=== PATIENT | female | born 1945 | race Caucasian/White ===

== ENCOUNTER 2021-01-30 18:07 | Emergency (ER) | payer MEDICARE, SELFPAY ==
[2021-01-30 18:15] VITALS: BP 157/71; PULSE 93; RESP 18; TEMP 36.6; O2SAT 97; BMI 36.8
--- NOTE | 2021-01-30 18:38 | HMH.EDUTC ---
[facility] Disposition Clinical Impression: Muscle spasm Disposition: Home, Self-Care Condition on Discharge: Good Instructions: Methocarbamol, DI for Muscle Spasm Additional Instructions: *Ibuprofen celina 6 hours with meal as needed for pain/inflammation if you are able to take it *Not additional anti-inflammatory like motrin, aleve, advil with the above amount of ibuprofen. You can still take Tylenol every 4 hours as needed if you need something else for pain *Ice 20 minutes every 2 hours for the first 48 hours after the initial injury followed by moist heat every 20 minutes 3-4 times a day to affected area *Muscle relaxer as prescribed as needed for muscle spasms but remember, it WILL cause drowsiness You cannot take it and drive, operate machinery or care for small children. *Keep this area active, no movement leads to more stiffness, However take it easy and avoid heavy lifting pushing or pulling *Follow up with you family doctor if no improvement for further treatment Return if needed Straight to ER if any life threatening symptoms Prescriptions: methocarbamoL [Methocarbamol 500mg Tablet] 500 mg PO BID 5 Days #10 tab Transmission Status: Pending to [facility] #[id number] Referrals: Vicky Morgan [Primary Care Provider] - As needed Time of Disposition: 18:45 Medical Decision Making - Rey Inquiry Pt receiving controlled substance: No Rey was queried for this patient: No Vital Signs: 01/30/21 18:15 Temperature 97.9 F Temperature Source Temporal Artery Scan Pulse Rate [Right Brachial] 93 H Respiratory Rate 18 Blood Pressure [Right Arm] 157/71 H Blood Pressure Mean [Right Arm] 99 Blood Pressure Source [Right Arm] Automatic Cuff Blood Pressure Position [Right Arm] Sitting 02 Sat by Pulse Oximetry 97 Oxygen Delivery Method Room Air Medical Decision Narrative: Patient reports pain with palpation in her left shoulder area and side of neck State that she woke up with a crick in her neck Denies chest pain denies shortness of breath and states that pain is worse with movement and did improve somewhat after applying ice to area. [facility] HPI - General Stated complaint: Left shoulder& Neck pain Time Seen by Provider: 01/30/21 18:38 Mode of Arrival: Ambulatory Source of Information: Patient Limitations: No Limitations Description of Symptoms (Recalled from Triage Doc. by RN): PATIENT C/O PAIN IN LEFT NECK AND SHOULDER SINCE YESTERDAY HEENT Symptoms (Recalled from RN notes): No Resp Symptoms (Recalled from RN notes): No Skin Symptoms (Recalled from RN notes): No MS Symptoms (Recalled from RN notes): Yes Functional Status (Recalled from RN notes): WNL - History of Present Illness Provider Complaint: Patient states that she slept wrong night before last and when she woke up yesterday with a crick in her neck States that when she turns her head she feels like she is having muscle spasms in her shoulder area and feels like that muscle is tight like a rubber band States that she used some ice on it and it helped some but still sore and hurts with certain ways she moves and turns her head - Related Data Home Medications Medication Instructions Recorded Confirmed Amlodipine Besylate [Amlodipine 10 mg PO DAILY 01/30/21 01/30/21 10mg Tab] Levothyroxine Sodium 50 mcg PO DAILY 01/30/21 01/30/21 [Levothyroxine 50mcg (0.05mg) Tab] Previous Rx's Medication Instructions Recorded methocarbamoL [Methocarbamol 500mg 500 mg PO BID 5 Days #10 tab 01/30/21 Tablet] Allergies Allergy/AdvReac Type Severity Reaction Status Date / Time No Known Allergies Allergy Verified 01/30/21 18:37 - Worker's Comp Is this a Worker's Comp case?: No [facility] History - Hepatitis A Screen Drug use history?: No High risk sexual behaviors?: No History of sexually transmitted infection?: No Currently employed?: No Childcare worker?: No Do you have indoor plumbing?: Yes Do you have electricity?: Yes
[2021-01-30 18:53] VITALS: BP 157/71; PULSE 93; RESP 18; TEMP 36.6; O2SAT 97
== END 2021-01-30 18:56 | disposition home or self-care (01) ==
PROVIDERS: Emergency Provider Nurse Practitioner; PCP Physician Assistant
DX: M62.838 Other muscle spasm (principal); M54.2 Cervicalgia; M25.512 Pain in left shoulder

== ENCOUNTER 2021-10-13 21:26 | Inpatient (IN) | payer MEDICARE, OTHER, SELFPAY ==
--- NOTE | 2021-10-13 21:44 | ECG_ITS ---
APPROVED REPORT Exam: Resting ECG HR:150 bpm ECG Measurements Heart Rate 150 AXES QRSd 94 QRS 79 QT 280 T 71 QTc 365 Conclusion ATRIAL FIBRILLATION WITH RAPID VENTRICULAR RESPONSE WITH ABERRANT CONDUCTION OR VENTRICULAR PREMATURE COMPLEXES POSSIBLE ANTERIOR MYOCARDIAL INFARCTION , OF INDETERMINATE AGE [30 ms Q WAVE IN V3/V4, OR R < 0.2 mV IN V4] CRITICAL TEST RESULT UNCONFIRMED REPORT Electronically signed by : Orlando Tripathi MD 10/14/2021 18:12:44
[2021-10-13 21:53] VITALS: BP 111/60; PULSE 156; RESP 18; TEMP 37.4; O2SAT 95; BMI 34.9
--- NOTE | 2021-10-13 21:54 | XR_ITS ---
PROCEDURE INFORMATION: Exam: XR Chest Exam date and time: 10/13/2021 10:01 PM Age: 76 years old Clinical indication: Cardiovascular condition or disease; Atrial fibrillation; Additional info: Af rvr, looking for infection TECHNIQUE: Imaging protocol: XR of the chest. Views: 1 view. COMPARISON: No relevant prior studies available. FINDINGS: Lungs: Pulmonary vascular congestion and interstitial prominence. Pleural spaces: Unremarkable. No pleural effusion. No pneumothorax. Heart/Mediastinum: Cardiomegaly. Bones/joints: Unremarkable. IMPRESSION: Cardiomegaly and CHF pattern.
[2021-10-13 21:58] LABS: Coronavirus 19, PCR Not Detected (NotDetected); Influenza A, PCR Not Detected (NotDetected); Influenza B, PCR Not Detected (NotDetected)
--- NOTE | 2021-10-13 22:03 | HMH.EDGENADL ---
ED Disposition Clinical Impression: Atrial fibrillation with rapid ventricular response Disposition: Admitted As Inpatient Condition on Discharge: Serious Referrals: Provider,Referral, [Primary Care Provider] - - Critical Care Critical Care Time: Yes (45) Attestation: On 10/13/21, the high probability of a clinically significant, sudden or life threatening deterioration of the following system(s) required my full and direct attention, intervention and personal management. The time I documented below is in addition to time spent performing reported procedures but includes the following listed in this critical care notation. Vital system(s) involved:: Circulatory Failure My critical care processes included: Assessment & monitoring of V/S, Initial and Re-exams, Data Review/Interpretation, Coordinating Care, Medication Orders and management, Documentation Medical Decision Making - Medical Records Medical records reviewed: Yes: I reviewed the patient's medical records. - Rey Inquiry Pt receiving controlled substance: No Vital Signs: 10/13/21 21:53 10/13/21 23:00 10/13/21 23:31 Temperature 99.3 F Temperature Source Oral Pulse Rate 141 H Pulse Rate [Left Radial] 156 H Respiratory Rate 18 18 18 Blood Pressure 127/67 104/67 L Blood Pressure [Right Arm] 111/60 Blood Pressure Mean 74 75 Blood Pressure Mean [Right Arm] 77 Blood Pressure Source [Right Arm] Automatic Cuff Blood Pressure Position [Right Arm] Sitting 02 Sat by Pulse Oximetry 95 95 Oxygen Delivery Method Room Air 10/13/21 23:45 10/14/21 00:00 10/14/21 00:30 Temperature Temperature Source Pulse Rate 142 H 129 H 122 H Pulse Rate [Left Radial] Respiratory Rate 19 31 H 29 H Blood Pressure 109/62 L 106/57 L 100/56 L Blood Pressure [Right Arm] Blood Pressure Mean Blood Pressure Mean [Right Arm] Blood Pressure Source [Right Arm] Blood Pressure Position [Right Arm] 02 Sat by Pulse Oximetry 88 L 88 L 95 Oxygen Delivery Method 10/14/21 01:00 10/14/21 01:30 10/14/21 02:00 Temperature Temperature Source Pulse Rate 112 H 130 H Pulse Rate [Left Radial] Respiratory Rate 24 22 Blood Pressure 108/72 L 110/67 115/63 Blood Pressure [Right Arm] Blood Pressure Mean 77 83 84 Blood Pressure Mean [Right Arm] Blood Pressure Source [Right Arm] Blood Pressure Position [Right Arm] 02 Sat by Pulse Oximetry 97 97 Oxygen Delivery Method 10/14/21 03:13 10/14/21 03:31 10/14/21 04:01 Temperature Temperature Source Pulse Rate 122 H 118 H 124 H Pulse Rate [Left Radial] Respiratory Rate Blood Pressure 140/109 H 102/62 L 103/58 L Blood Pressure [Right Arm] Blood Pressure Mean 113 66 73 Blood Pressure Mean [Right Arm] Blood Pressure Source [Right Arm] Blood Pressure Position [Right Arm] 02 Sat by Pulse Oximetry 94 L 94 L 97 Oxygen Delivery Method 10/14/21 04:15 Temperature Temperature Source Pulse Rate 77 Pulse Rate [Left Radial] Respiratory Rate 22 Blood Pressure Blood Pressure [Right Arm] Blood Pressure Mean Blood Pressure Mean [Right Arm] Blood Pressure Source [Right Arm] Blood Pressure Position [Right Arm] 02 Sat by Pulse Oximetry 95 Oxygen Delivery Method - Lab Data Lab Results 10/13/21 21:52: SARS-CoV-2 (PCR) Not detected, Influenza A Untype (PCR) Not detected, Influenza Type B (PCR) Not detected 10/13/21 22:21: WBC 10.2, RBC 4.49, Hgb 13.3, Hct 42.5, MCV 94.6, MCH 29.5, MCHC 31.2 L, RDW 17.1, Plt Count 185, MPV 10.0, Neut % (Auto) 68.3, Lymph % (Auto) 22.8, Mccone % (Auto) 7.1, Eos % (Auto) 0.3, Baso % (Auto) 1.5, Neut # (Auto) 7.0, Lymph # (Auto) 2.3, Mccone # (Auto) 0.7, Eos # (Auto) 0.0, Baso # (Auto) 0.2 10/13/21 22:21: Sodium 131 L, Potassium 4.1, Chloride 99, Carbon Dioxide 24, Anion Gap 12.1, BUN 29 H, Creatinine 1.10 H, Estimated Creat Clear 62, Estimated GFR 48 L, Est GFR ( Amer) 58 L, Glucose 109 H, Calcium 8.9, To
[2021-10-13 22:39] LABS: Microscopic, Urine URINE MICROSCOPIC (MICROSCOPIC)
[2021-10-13 22:41] LABS: Basophils # 0.2 K/mm3 (0-0.2); Basophils % 1.5 % (0.1-2.0); Eosinophils % 0.3 % (0.1-12.0); Hematocrit 42.5 % (37.0-47.0); Hemoglobin 13.3 g/dL (12.2-16.2); Lymphocytes # 2.3 K/mm3 (0.7-4.5); Lymphocytes % 22.8 % (10-50); Mean Corpuscular HGB Conc 31.2 g/dL (31.8-35.4); Mean Corpuscular Hemoglobin 29.5 pg (27.0-31.2); Mean Corpuscular Volume 94.6 fl (81-99); Monocytes # 0.7 K/mm3 (0.1-1.0); Monocytes % 7.1 % (1.7-9.3); Neutrophils % 68.3 % (37.0-80.0); Platelet Count 185 K/mm3 (142-424); Red Blood Count 4.49 M/mm3 (4.20-5.40); Red Cell Distribution Width 17.1 % (11.5-17.5); White Blood Count 10.2 K/mm3 (4.8-10.8)
[2021-10-13 22:42] LABS: Appearance,Urine CLEAR (Clear); Bilirubin,Urine Negative (Negative); Blood, Urine Negative (Negative); Color,Urine YELLOW (Yellow); Glucose,Urine (UA) Negative (Negative); Ketones,Urine Negative (Negative); Leukocyte Esterase,Urine Negative (Negative); Nitrate,Urine Negative (Negative); PH,Urine 5.5 (5.0-8.5); Protein,Urine TRACE (Negative); Specific Gravity, Urine 1.025 (1.005-1.030); Urobilinogen,Urine 0.2 EU/dl (0.2)
[2021-10-13 22:45] LABS: Alanine Aminotransferase 26 U/L (12-78); Albumin/Globulin Ratio 1.4 (1.1-1.8); Alkaline Phosphatase 110 U/L (38-126); Anion Gap 12.1 mEq/L (5-15); Aspartate Amino Transferase 74 U/L (14-36); Bilirubin,Total 1.2 mg/dl (0.2-1.3); Blood Urea Nitrogen 29 mg/dl (7-17); Calcium 8.9 mg/dl (8.4-10.2); Carbon Dioxide 24 mmol/L (22.0-30.0); Chloride 99 mmol/L (98-107); Creatinine Clearance Estimated 62 mL/min (50-200); Estimated Glomerular Filt Rate 48 ml/min (>60); GFR (African American) 58 ML/MIN (>60); Globulin 2.8 g/dL (1.3-3.2); Glucose 109 mg/dl (74-100); Potassium 4.1 mmoL/L (3.5-5.1); Sodium 131 mmol/L (136-145); Total Protein,Serum 6.8 g/dl (6.3-8.2)
[2021-10-13 22:54] LABS: NT Pro Brain Natriuretic Pep. 6770 pg/mL (0-450)
[2021-10-13 22:57] LABS: Troponin I 0.02 ng/ml (0.00-0.034)
[2021-10-13 23:00] VITALS: BP 127/67; PULSE 141; RESP 18
[2021-10-13 23:16] LABS: Thyroid Stimulating Hormone 4.72 uIU/mL (0.465-4.68)
[2021-10-13 23:28] LABS: Bacteria,Urine Trace /lpf; WBC,Urine Occasional #/hpf (0-3)
[2021-10-13 23:31] VITALS: BP 104/67; RESP 18; O2SAT 95
--- NOTE | 2021-10-13 23:37 | PC.NURSE ---
PT AWARE OF PLAN TO ADMIT. FAMILY REMAINS AT BEDSIDE. WCM.
[2021-10-13 23:45] VITALS: BP 109/62; PULSE 142; RESP 19; O2SAT 88
[2021-10-14] VITALS (35 sets, daily range): BP systolic 87–140; BP diastolic 51–109; PULSE 50–141; RESP 17–34; TEMP 37.1–38.2; O2SAT 87–100; BMI 35.4
[2021-10-14 01:31] LABS: Troponin I 0.02 ng/ml (0.00-0.034)
--- NOTE | 2021-10-14 02:37 | PC.NURSE ---
PT MOVED FROM ROOM 6 TO ROOM 1 AND PLACED IN HOSPITAL BED. PT TOLERATED WELL.
[2021-10-14 03:02] LABS: Basophils # 0.1 K/mm3 (0-0.2); Basophils % 1.3 % (0.1-2.0); Eosinophils % 0.3 % (0.1-12.0); Hematocrit 38.9 % (37.0-47.0); Hemoglobin 12.1 g/dL (12.2-16.2); Lymphocytes # 1.9 K/mm3 (0.7-4.5); Lymphocytes % 18.9 % (10-50); Mean Corpuscular Hemoglobin 29.6 pg (27.0-31.2); Mean Corpuscular Volume 95.7 fl (81-99); Mean Platelet Volume 9.8 fl (7.4-10.4); Monocytes # 0.7 K/mm3 (0.1-1.0); Monocytes % 7.3 % (1.7-9.3); Neutrophils # 7.1 K/mm3 (1.8-7.8); Neutrophils % 72.2 % (37.0-80.0); Platelet Count 193 K/mm3 (142-424); Red Blood Count 4.07 M/mm3 (4.20-5.40); Red Cell Distribution Width 17.2 % (11.5-17.5); White Blood Count 9.8 K/mm3 (4.8-10.8)
[2021-10-14 03:08] LABS: Chloride 99 mmol/L (98-107); Potassium 3.9 mmoL/L (3.5-5.1); Sodium 131 mmol/L (136-145)
[2021-10-14 03:11] LABS: Anion Gap 9.9 mEq/L (5-15); Blood Urea Nitrogen 28 mg/dl (7-17); Calcium 7.6 mg/dl (8.4-10.2); Carbon Dioxide 26 mmol/L (22.0-30.0); Creatinine Clearance Estimated 62 mL/min (50-200); Estimated Glomerular Filt Rate 48 ml/min (>60); GFR (African American) 58 ML/MIN (>60); Glucose 114 mg/dl (74-100)
--- NOTE | 2021-10-14 04:31 | PC.NURSE ---
PT RESTING QUIETLY WITH EYES CLOSED. O2 2L NC IN USE. FAMILY AT BEDSIDE. WCM.
--- NOTE | 2021-10-14 07:05 | HMH.PHAINT ---
MEDICATION RECONCILIATION COMPLETED ON PATIENT USING EXTERNAL FILL HISTORY FROM PHARMACY. -ANGE DO, JOSED
[2021-10-14 07:19] LABS: Troponin I 0.03 ng/ml (0.00-0.034)
--- NOTE | 2021-10-14 08:24 | PC.NURSE ---
MARA RIOS spoke with SAILAJA Reed at this time
--- NOTE | 2021-10-14 09:30 | CA_ITS ---
APPROVED REPORT EXAM: Comprehensive 2D, Doppler, and color-flow Echocardiogram [employer] Plant Operator: Mona Reagan RDCS Ht: 5 ft 3 in Wt: 197lbs BSA: 1.92 BP: 113/65 mmHg Indications: AF,CHF,HTN,SOA,CLINE,OBESITY 2D Dimensions LVOT 1.45 cm (M/F) 1.5-2.5 LA Volume 128.10 mL LA Volume Index 66.71 mL/m2 (M/F) 16-34 M-Mode Dimensions RVDd 2.96 cm (0.9-2.6) LA Diam 5.60 cm (1.9-4.0) LVDd 4.21 cm (3.5-5.7) Ao Diam 2.93 cm (2.0-3.7) LVDs 3.81 cm (3.5-5.7) IVSd 0.53 cm (0.6-1.1) PWd 0.53 cm (0.6-1.1) EF (Teich) 21.10% FS 9.50% EDV (Teich) 79.00 mL TAPSE 1.62 (<1.7) ESV (Teich) 62.30 mL LV Diastology E Decel Time 150.00 (160-240 msec) E/A Ratio 1.10 Aortic Valve LVOT Max 150.00 (70-110 cm/s) LVOT VTI 21.54 cm AoV Peak Yogesh. 297.00 (50-130 cm/s) AI PHT 110.00 ms AO Peak GR. 35.50 mmHg AO Mean GR. 17.50 (<5 mmHg) AO VTI 41.30 (18-25 cm) DUNIA (VTI) 0.86 (2.5-4.5 cm2) Mitral Valve MV A Velocity 204.00 (40-130 cm/s) E/A Ratio 1.10 MV Decel. Time 150.00 (160-240 ms) MV PHT 132.00 ms Tricuspid Valve TR P. Velocity 369.00 cm/s RAP Estimate 10.00 mmHg RVSP 64.40 mmHg Left Ventricle Left atrium is markedly enlarged, left ventricle is normal size, mild concentric left ventricular hypertrophy, visually estimated ejection fraction 50% with no regional wall motion abnormality, there is abnormal septal motion. Diastolic parameters are inconclusive. Right Ventricle Right atrium is moderately enlarged, right ventricle is mildly dilated with normal contractility. Aortic Valve Aortic valve is thickened and calcified with severe restriction to leaflet mobility, the mean gradient across the aortic valve is 20 mmHg however the valve area is 0.9 cm??? represents severe aortic stenosis, there is mild aortic insufficiency. Mitral Valve Mitral valve has dense mitral annular calcification which extends to both anterior posterior mitral leaflet, the leaflet mobility is severely restricted, mitral inflow velocity is as high as 3 m/s, the mean gradient is not calculated in the study, valve area is not accurately assessed, morphologically there appears to be severe mitral stenosis, but repeat study with better Doppler technique is recommended. There is mild mitral regurgitation. Tricuspid Valve There is moderate tricuspid regurgitation, calculated right ventricular systolic pressure 64 mmHg. Pulmonic Valve Pulmonic valve is poorly visualized. Great Vessels Aortic root is normal size. Inferior vena cava is poorly visualized. Pericardium No significant pericardial effusion noted. Conclusion 1. Marked biatrial enlargement, normal left ventricular size, mild concentric left ventricular hypertrophy, visually estimated ejection fraction 50%, there is abnormal septal motion, diastolic parameters are inconclusive. 2. Thickened and calcified aortic valve with severe aortic stenosis, valve area of 2.9 cm???, there is mild aortic insufficiency. 3. Thickened and calcified mitral valve as described above likely due to severe mitral stenosis, a repeat study with better Doppler technique is recommended. 4. Moderate tricuspid regurgitation, calculated ventricular systolic pressure 64 mmHg. 5. No significant pericardial effusion noted. 6. Inferior vena cava is poorly visualized. 7. Mildly dilated right ventricle with normal contractility. Electronically signed by : Kai Stratton MD 10/14/2021 19:51:40
--- NOTE | 2021-10-14 09:30 | PC.NURSE ---
dr. valencia gave verbal order for echo on pt, notified cv lab staff, spoke with kyra
--- NOTE | 2021-10-14 09:37 | PC.NURSE ---
updated pt on POC, pt repositioned in bed, assisted pt onto R side, placed pillow under L hip. call light within reach will continue to monitor.
--- NOTE | 2021-10-14 09:40 | PC.NURSE ---
amalia from echo lab called asked pt HR (130-140), states they need to wait to do pts echo until HR is [address] will notify Dr. Franklin
--- NOTE | 2021-10-14 10:05 | PC.NURSE ---
jose carlos betancourt at BS
--- NOTE | 2021-10-14 10:15 | PC.NURSE ---
per jose carlos betancourt while telling me medication changes states if pt sbp drops below 100 to start pt on Neosynephrine drip.
--- NOTE | 2021-10-14 10:24 | PC.NURSE ---
increased diltiazem drip to 10mg/hr at this time per verbal order for jose carlos betancourt
--- NOTE | 2021-10-14 10:28 | HMH.CNCARD ---
History of Present Illness Consult date: 10/14/21 Requesting physician: Mann Franklin Consult reason: atrial fibrillation, congestive heart failure Chief complaint: CHF, New A. fib/RVR Additional Medical History:: 1. Hypertension 2. Hypothyroidism, on replacement 3. Morbid obesity 4. New onset atrial fibrillation, 09/2021 History of present illness: Patient is a 76-year-old female who presents the ED today for further evaluation of weakness, patient states she was diagnosed with atrial fibrillation recently, and states that she was not started on any medications, states that in the last 24 hours she has felt progressively weak, and her son at bedside states she has been having trouble taking care of herself at home because of this. Patient states he has not had any cough, fever, denies chest pain, denies abdominal pain shortness of breath, nausea, vomiting, dysuria, pain in her arms or legs. Patient is a 76-year-old female presents the ED today, new diagnosis of atrial fibrillation last week, but states she has not started on any medications orally has not been taking any medications for the last week or so. Patient states that she has been feeling very weak, and presents today with elevated heart rate of 150s, irregularly irregular rhythm consistent with atrial fibrillation with rapid ventricular response, as the etiology for patient going into RVR, unclear at this point we will work-up further with chest x-ray, urinalysis, troponins, BNP, CBC, CMP. I perform bedside ultrasonography of patient's heart, difficult right-sided heart visualization, however left side showed adequate squeeze, with visually normal ejection fraction, enlarged atria bilaterally consistent with heart failure, patient has jugular venous distention and extreme edema in her lower extremities with large volume pitting edema, not currently taking diuretic. Given this patient's amount of fluid overload she will certainly need admission for inpatient diuresis and rate control, we will start with diltiazem here 0.25 mg/kg, then proceed to a drip if needed, heart rate goal be less than 120. We also administer 40 mg of IV Lasix for diuresis. Patient reassessed after Lasix administration, has not had much diuresis probably around 200 mils, given this we will increase her dose to 80 mg IV. And closely reassess, patient's heart rate has improved mildly, with a heart rate of around 130 fairly consistently with occasional jumps into the 150s. This is improved from initial presentation, her goal being 120 we will start diltiazem drip at 5, and titrate up if needed. Patient has had approximately 1500 mils of urine out, will continue diuresis with an additional 80 mg of IV Lasix. Patient be admitted to Dr. Cotton for inpatient management. We have obtained repeat labs which did not show any worsening kidney function. The above per Dr. Ramirez Patient confirms events as noted above and relates a 2 to 3-week history of gradual increasing shortness of breath and lower extremity edema. She denies any prior cardiac history except for hypertension. No recent febrile illness, nausea, vomiting or diarrhea. Shortness of breath has been progressive and requiring her to sleep on multiple pillows or sitting up. Significant lower extremity edema worsening over the last 2 weeks. Patient currently on IV Cardizem at 5 mg/h with blood pressure around 110 mmHg systolic but heart rate continues around 140 bpm.. There is about 1500 mL of urine in the catheter bag. Patient states she is breathing better. Discussed with Dr. Murillo, will increase Cardizem to 10 mg/h, add metoprolol tartrate 25 mg x 1 and give 0.25 IV of digoxin. We would like the heart rate to come down around 100 bpm in order to obtain a echocardiogram for further evaluation. Rolando-Synephrine will be used if needed for hypotension. [facility] History *Have you ever received a pneumonia vaccine?: No *Have you received a flu vaccine this season?: No [place]
--- NOTE | 2021-10-14 10:32 | HMH.HP ---
*Admission Date: 10/14/21 *Chief complaint: afib *History of present illness: 76-year-old female presents the ED today, new diagnosis of atrial fibrillation last week, but states she has not started on any medications orally has not been taking any medications for the last week or so. Patient states that she has been feeling very weak, and presents today with elevated heart rate of 150s, irregularly irregular rhythm consistent with atrial fibrillation with rvr.Patient states he has not had any cough, fever, denies chest pain, denies abdominal pain shortness of breath, nausea, vomiting, dysuria, pain in her arms or legs. Patient admitted for cardiology consult and further work up [facility] History I have reviewed the patient's past medical history: Yes *Have you ever received a pneumonia vaccine?: No *Have you received a flu vaccine this season?: No Laterality Cases: Bilateral: Tonsillectomy - *Social History Smoking Status: Unknown if ever smoked Alcohol Intake: never *Occupational Status:: other *Travel in the last 8 weeks: None Family Hx:: No significant family history Review of Systems - Review of Systems Review of systems:: pertinent systems reviewed and negative unless documented below - Constitutional Denies body ache(s), Denies lack of energy - Eyes Denies blurry vision - ENT Denies dizziness - *Cardiovascular Reports shortness of breath, Reports generalized swelling, Reports irregular heart rhythm, Reports shortness of breath when lying down, Reports fast heart rate - *Respiratory Denies change in phlegm color - *Gastrointestinal Denies abdominal pain - *Genitourinary Denies abnormal periods - *Musculoskeletal Denies abnormal walking - Integumentary/Breasts Denies rash - *Neurologic Reports weakness, Denies abnormal hearing - Psychiatric Denies abnormal sleep pattern - Endocrine Denies excessive sweating - Hematologic/Lymphatic Denies easy bruising - Allergic/Immunologic Denies GI upset with certain foods Meds Home Medications Medication Instructions Recorded Confirmed Type Amlodipine Besylate [Amlodipine 10 mg PO DAILY 01/30/21 10/13/21 History 10mg Tab] Levothyroxine Sodium 50 mcg PO DAILY 01/30/21 10/13/21 History [Levothyroxine 50mcg (0.05mg) Tab] Allergies Allergy/AdvReac Type Severity Reaction Status Date / Time No Known Allergies Allergy Verified 01/30/21 18:37 Exam Vital signs and Labs for Last 24 Hours: Temp Pulse Resp BP Pulse Ox 99.3 F 122 H 34 H 108/61 L 92 L 10/13/21 21:53 10/14/21 09:00 10/14/21 09:00 10/14/21 09:00 10/14/21 09:00 Laboratory Results - last 24 hr 10/13/21 21:52: SARS-CoV-2 (PCR) Not detected, Influenza A Untype (PCR) Not detected, Influenza Type B (PCR) Not detected 10/13/21 22:21: WBC 10.2, RBC 4.49, Hgb 13.3, Hct 42.5, MCV 94.6, MCH 29.5, MCHC 31.2 L, RDW 17.1, Plt Count 185, MPV 10.0, Neut % (Auto) 68.3, Lymph % (Auto) 22.8, Edgar % (Auto) 7.1, Eos % (Auto) 0.3, Baso % (Auto) 1.5, Neut # (Auto) 7.0, Lymph # (Auto) 2.3, Edgar # (Auto) 0.7, Eos # (Auto) 0.0, Baso # (Auto) 0.2 10/13/21 22:21: Sodium 131 L, Potassium 4.1, Chloride 99, Carbon Dioxide 24, Anion Gap 12.1, BUN 29 H, Creatinine 1.10 H, Estimated Creat Clear 62, Estimated GFR 48 L, Est GFR ( Amer) 58 L, Glucose 109 H, Calcium 8.9, Total Bilirubin 1.2, AST 74 H, ALT 26, Alkaline Phosphatase 110, Troponin I 0.02, Total Protein 6.8, Albumin 4.0, Globulin 2.8, Albumin/Globulin Ratio 1.4, TSH 4.72 H 10/13/21 22:21: NT-Pro-B Natriuret Pep 6770 H 10/13/21 22:21: Urine Color Yellow, Urine Appearance Clear, Urine pH 5.5, Ur Specific Ringold 1.025, Urine Protein Trace, Urine Glucose (UA) Negative, Urine Ketones Negative, Urine Blood Negative, Urine Nitrate Negative, Urine Bilirubin Negative, Urine Urobilinogen 0.2, Ur Leukocyte Esterase Negative, Urine WBC Occasional, Urine Bacteria Trace 10/14/21 01:01: Troponin I 0.02 10/14/21 02:50: WBC 9.8, RBC 4.07 L, Hgb 12.1 L
--- NOTE | 2021-10-14 13:25 | PC.NURSE ---
report given to eric maddox rn in SCU at this time, ER MD staff will transport pt to assigned to room
--- NOTE | 2021-10-14 21:30 | PC.NURSE ---
dr fine called an notified of pt sustaining hr 130's to 150; afib/flutter on monitor, note order for metoprolol given to give 50mg p.o. x1 and repeat in eight hours, repeated and verified.
[2021-10-15] VITALS (25 sets, daily range): BP systolic 80–106; BP diastolic 50–70; PULSE 81–128; RESP 16–26; TEMP 36.6–38.4; O2SAT 90–96; BMI 35.9
--- NOTE | 2021-10-15 02:00 | PC.NURSE ---
0200 dr fine notified that pt hr has decreased to 100 to 120's at times, afib/flutter on monitor, dr fine also notifed that b/p has been decreasing 70's/50's with maps 61-55; note order to start phenylephrine drip to keep maps greater than 70 repeated and verified.
--- NOTE | 2021-10-15 06:59 | P.CONPHA_ITS ---
[facility] Pharmacy VTE Monitoring - Patient Demographics Admission date: 10/15/21 Report Date: 10/15/21 Time: 06:59 Allergies/Adverse Reactions: Patient Allergies No Known Allergies Allergy (Verified 01/30/21 18:37) Height: 1.6 m Weight: 91.807 kg Patient Problems: Current Active Problems Atrial fibrillation with rapid ventricular response (Acute) Systolic congestive heart failure, NYHA class 4 (Acute) Morbid obesity (Acute) History of hypertension (Acute) Hypothyroidism (Acute) - VTE Risk Labs: VTE Related Lab Results Hgb 12.1 g/dL (12.2-16.2) L 10/14/21 02:50 Hct 38.9 % (37.0-47.0) 10/14/21 02:50 Plt Count 193 K/mm3 (142-424) 10/14/21 02:50 BUN 28 mg/dl (7-17) H 10/14/21 02:50 Creatinine 1.10 mg/dl (0.52-1.04) H 10/14/21 02:50 Estimated Creat Clear 62 mL/min (50-200) 10/14/21 02:50 Was VTE Risk Assessment Performed: Yes VTE Score: 4 VTE Risk Level: Low Risk Clinical Trial Participant: No - Prophylaxis VTE Prophylaxis Ordered?: Yes Types of VTE Prophylaxis: TEDS Knee High, Pharmacological Pharmacologic Type: Enoxaparin
--- NOTE | 2021-10-15 08:00 | HMH.PNCARD ---
Subjective Date: 10/15/21 Time: 08:00 Principal diagnosis: Anthony ruiz, CHF, severe mitral stenosis, severe aortic stenosis Interval history: 76-year-old white female in the ICU in bed in no acute distress. Still feels weak but shortness of breath has improved slightly. Urine output only about 2 L during her stay. Heart rate has improved on combination of IV Cardizem, oral metoprolol and IV digoxin. Echocardiogram from yesterday shows ejection fraction 50% but with both severe aortic stenosis and mitral stenosis. Discussed with Dr. Murillo and will recommend transfer to for intervention of valvular disease. Exam Vital signs and Labs for Last 24 Hours: Temp Pulse Resp BP Pulse Ox 100.8 F H 95 H 16 97/59 L 95 10/15/21 06:00 10/15/21 06:00 10/15/21 06:00 10/15/21 06:00 10/15/21 06:00 I & O for Last 24 hours: Intake & Output 10/12/21 10/13/21 10/14/21 10/15/21 11:59 11:59 11:59 11:59 Intake Total 561 / 561 Output Total 700 / 700 1450 / 1450 Balance -700 / -700 -889 / -889 Weight 197 lb 9.6 oz 202 lb 6.4 oz - Constitutional no acute distress - *Routine Respiratory Exam Present: CTA bilaterally - *Routine Cardiovascular Exam Present: murmur, irregularly irregular - *Routine Extremities Exam Present: edema. Absent: cyanosis, clubbing Progress Note: A&P (1) Atrial fibrillation with rapid ventricular response Status: Acute (2) History of hypertension Status: Acute (3) Hypothyroidism Status: Acute (4) Morbid obesity Status: Acute (5) Systolic congestive heart failure, NYHA class 4 Status: Acute (6) Symptomatic severe aortic stenosis with normal ejection fraction Status: Acute (7) Mitral valve stenosis, severe Status: Acute Assessment and Plan for All Diagnoses:: Plan is to attempt transfer to the [facility] to the services of Dr. Gonsalves for intervention of mitral and aortic stenosis. Continue metoprolol 50 mg twice daily, digoxin 0.25 mg today and will attempt to lower IV Cardizem as tolerated.
--- NOTE | 2021-10-15 09:41 | HMH.DCSUM ---
General - General Admission date:: 10/14/21 Discharge date: 10/15/21 HPI HPI: 76-year-old female presents the ED today, new diagnosis of atrial fibrillation last week, but states she has not started on any medications orally has not been taking any medications for the last week or so. Patient states that she has been feeling very weak, and presents today with elevated heart rate of 150s, irregularly irregular rhythm consistent with atrial fibrillation with rvr.Patient states he has not had any cough, fever, denies chest pain, denies abdominal pain shortness of breath, nausea, vomiting, dysuria, pain in her arms or legs. Patient admitted for cardiology consult and further work up Hospital Course Hospital Course: 76-year-old female presents the ED today, new diagnosis of atrial fibrillation last week, but states she has not started on any medications orally has not been taking any medications for the last week or so. Patient states that she has been feeling very weak, and presents today with elevated heart rate of 150s, irregularly irregular rhythm consistent with atrial fibrillation with rvr.Patient states he has not had any cough, fever, denies chest pain, denies abdominal pain shortness of breath, nausea, vomiting, dysuria, pain in her arms or legs. Patient admitted for cardiology consult and further work up 10/14/21 CXR: FINDINGS: Lungs: Pulmonary vascular congestion and interstitial prominence. Pleural spaces: Unremarkable. No pleural effusion. No pneumothorax. Heart/Mediastinum: Cardiomegaly. Bones/joints: Unremarkable. IMPRESSION: Cardiomegaly and CHF pattern. Electronically signed by Agustín Waters MD 10/14/21 ECHO: Conclusion 1. Marked biatrial enlargement, normal left ventricular size, mild concentric left ventricular hypertrophy, visually estimated ejection fraction 50%, there is abnormal septal motion, diastolic parameters are inconclusive. 2. Thickened and calcified aortic valve with severe aortic stenosis, valve area of 2.9 cm???, there is mild aortic insufficiency. 3. Thickened and calcified mitral valve as described above likely due to severe mitral stenosis, a repeat study with better Doppler technique is recommended. 4. Moderate tricuspid regurgitation, calculated ventricular systolic pressure 64 mmHg. 5. No significant pericardial effusion noted. 6. Inferior vena cava is poorly visualized. 7. Mildly dilated right ventricle with normal contractility. Electronically signed by : Kai Stratton MD 76-year-old female patient resting quietly in bed, son at bedside. Patient reports she still a little short of breath, denies any chest pain. Current oxygenation 95% on 4 L per nasal cannula. Cardizem drip is infusing heart rate is 95. Discussed transfer to [facility] for higher level of care patient and son verbalized understanding and agree to transfer. Plan is to attempt transfer to the [facility] to the services of Dr. Gonsalves for intervention of mitral and aortic stenosis. Continue metoprolol 50 mg twice daily, digoxin 0.25 mg today and will attempt to lower IV Cardizem as tolerated. PLAN: 1. Cardiology following 2. Awaiting bed at [facility] Objective Vital signs: Temp Pulse Resp BP Pulse Ox 98.6 F 86 16 97/59 L 95 10/15/21 08:23 10/15/21 08:52 10/15/21 06:00 10/15/21 06:00 10/15/21 06:00 mild distress - *Routine HEENT Exam Head: Present: normocephalic Eye: Present: EOMI ENT: Present: mucous membranes moist - *Routine Neck Exam Present: trachea midline. Absent: tracheal deviation - *Routine Respiratory Exam Present: CTA bilaterally. Absent: accessory muscle use - *Routine Cardiovascular Exam Present: murmur - *Routine Abdominal Exam Present: soft, normoactive bowel sounds. Absent: tenderness, firm - *Routine Extremities Exam Prese
--- NOTE | 2021-10-15 11:06 | ECG_ITS ---
APPROVED REPORT Exam: Resting ECG HR:77 bpm ECG Measurements Heart Rate 77 AXES QRSd 90 QRS 43 QT 364 T 91 QTc 395 Conclusion ATRIAL FIBRILLATION LOW QRS VOLTAGE IN EXTREMITY LEADS [QRS DEFLECTION < 0.5 mV IN LIMB LEADS] POSSIBLE ANTERIOR MYOCARDIAL INFARCTION , OF INDETERMINATE AGE [30 ms Q WAVE IN V3/V4, OR R < 0.2 mV IN V4] ABNORMAL ECG UNCONFIRMED REPORT Electronically signed by : Orlando Tripathi MD 10/16/2021 19:41:42
--- NOTE | 2021-10-15 14:04 | PC.NURSE ---
RN AWARE OF ELEVATED TEMP
--- NOTE | 2021-10-15 14:51 | PC.NURSE ---
I spoke with [facility] who states no bed available at this time
[2021-10-15 15:58] LABS: Microscopic,Cath URINE MICROSCOPIC (MICROSCOPIC)
--- NOTE | 2021-10-15 16:05 | PC.NURSE ---
Notified SAILAJA Rodriguez that pt had spiked a temp and that HR had increased to 110's-120's and in turn cardizem had been increased to 15 mls/hr. Blood cultures and urinalysis ordered. He requested Dr Cotton be notified to request an antibiotic. Left message with Dr Cotton's office to have them call me.
[2021-10-15 16:09] LABS: Appearance,Urine/Cath CLEAR (Clear); Bilirubin,Cath Negative (Negative); Blood, Urine/Cath 3+ (Negative); Color,Urine/Cath YELLOW (Yellow); Glucose,Urine/Cath (UA) Negative (Negative); Ketones,Urine/Cath Negative (Negative); Leukocyte Esterase,Cath Negative (Negative); Nitrate,Cath Negative (Negative); PH,Urine/Cath 5.5 (5.0-8.5); Protein,Urine/Cath 1+ (Negative); Specific Gravity, Urine/Cath >= 1.030 (1.005-1.030); Urobilinogen,Cath 0.2 EU/dl (0.2)
--- NOTE | 2021-10-15 16:15 | PC.NURSE ---
Pt is alert and oriented x4. Lungs are clear. She remains on 4L NC w/ O2 sats measuring mostly in the im
--- NOTE | 2021-10-15 16:16 | PC.NURSE ---
Pt is alert and oriented x4. Lungs are clear. She remains on 4L NC w/ O2 sats measuring mostly in the mid - upper 90's. She occasionally drops to the 80's with exertion. She's been afib/aflutter on telemetry with occasional pvc's. +2 edema noted to ble. She has been febrile (101.1) this shift. Tylenol administered, temp was 98.3 on reassessment. Her wilson is to bedside draining clear, dark straw colored urine. Specimen sent to lab per order. Awaiting call back from MD's office for antibiotic order. Family has been at bedside and is supportive. Cardizem adjusted as follows: 0850 - decreased to 15 mls/hr 1030 - decreased to mls/hr 1150 - decreased to 5mls/hr 1410 - increased to 10 mls/hr 1450 - increased to 15 mls/hr
--- NOTE | 2021-10-15 16:45 | PC.NURSE ---
1605 - cardizem increased to 20mls/hr
[2021-10-15 18:40] LABS: Bacteria,Urine/Cath 3+ /lpf; WBC,Urine/Cath 20-50 #/hpf (0-3)
== END 2021-10-15 23:03 | disposition short-term general hospital (02) | DRG 306 ==
LOC: ER 23:15 → 2ND 10-14 06:00 → ICU 10-14 14:12 → 2ND 10-15 13:28
PROVIDERS: Physician Assistant; Admitting Provider Family Medicine; Emergency Provider Student in an Organized Health Care Education/Training Program; Visit Provider Family Medicine
DX: I08.0 Rheumatic disorders of both mitral and aortic valves (principal); I50.21 Acute systolic (congestive) heart failure; I13.0 Hypertensive heart and chronic kidney disease with heart failure and stage 1 through stage 4 chronic kidney disease, or unspecified chronic kidney disease; E87.1 Hypo-osmolality and hyponatremia; I48.91 Unspecified atrial fibrillation; Z20.822 Contact with and (suspected) exposure to COVID-19; E03.9 Hypothyroidism, unspecified; E66.01 Morbid (severe) obesity due to excess calories; Z68.35 Body mass index [BMI] 35.0-35.9, adult; N18.2 Chronic kidney disease, stage 2 (mild)
CPT/HCPCS: 36415; 51702; 71045; 80048; 80053; 81001; 83880; 84443; 84484; 85025; 87040; 87086; 87088; 87186; 93005; 93306; 96365; 96372; 96375; 96376; 99291; C9803; J0696; U0003; U0005